=== PATIENT | female | born 1995 ===

== ENCOUNTER 2018-02-24 13:41 | Emergency (ER) | payer SELFPAY ==
[2018-02-24] MEDS ORDERED: DELTASONE PO ONE (16:23)
[2018-02-24] MEDS ORDERED: PROVENTIL IH ONE ×2 (16:23→17:11)
--- NOTE | 2018-02-24 16:29 | Emergency Department Report ---
ED Asthma HPI - General Chief Complaint: Adult Asthma Stated Complaint: TIGHT CHEST/SOB Time Seen by Provider: 02/24/18 16:06 Source: patient Mode of arrival: Ambulatory Limitations: No Limitations - History of Present Illness MD Complaint: "asthma attack", shortness of breath -: Gradual, days(s) (3) Asthma History: childhood onset, history of frequent attac, history of prior ED visit Severity: mild Context: other (cold weather) Associated Symptoms: dry cough - Related Data Current Asthma Therapy: none Previous Rx's Medication Instructions Recorded Last Taken Type ALBUTEROL Inhaler(NF) [VENTOLIN 2 puff IH Q4HR PRN #1 inha 02/24/18 Unknown Rx Inhaler(NF)] Azithromycin [Zithromax TAB] 500 mg PO QDAY #5 tablet 02/24/18 Unknown Rx predniSONE [Deltasone] 60 mg PO QDAY #5 tab 02/24/18 Unknown Rx Allergies Allergy/AdvReac Type Severity Reaction Status Date / Time cephalexin [From Keflex] Allergy Hives Verified 02/24/18 13:47 ED Review of Systems ROS: Stated complaint: TIGHT CHEST/SOB Other details as noted in HPI Comment: All other systems reviewed and negative Constitutional: denies: chills, fever Eyes: denies: eye pain, eye discharge, vision change ENT: denies: ear pain, throat pain Respiratory: cough, shortness of breath. denies: wheezing Cardiovascular: denies: chest pain, palpitations Endocrine: no symptoms reported Gastrointestinal: denies: abdominal pain, nausea, diarrhea Genitourinary: denies: urgency, dysuria, discharge Musculoskeletal: denies: back pain, joint swelling, arthralgia Skin: denies: rash, lesions Neurological: denies: headache, weakness, paresthesias Psychiatric: denies: anxiety, depression Hematological/Lymphatic: denies: easy bleeding, easy bruising ED Past Medical Hx - Past Medical History Previous Medical History?: Yes Hx Asthma: Yes - Surgical History Past Surgical History?: No - Social History Smoking Status: Current Some Day Smoker Substance Use Type: None - Medications Home Medications: Home Medications Medication Instructions Recorded Confirmed Last Taken Type ALBUTEROL Inhaler(NF) [VENTOLIN 2 puff IH Q4HR PRN #1 inha 02/24/18 Unknown Rx Inhaler(NF)] Azithromycin [Zithromax TAB] 500 mg PO QDAY #5 tablet 02/24/18 Unknown Rx predniSONE [Deltasone] 60 mg PO QDAY #5 tab 02/24/18 Unknown Rx ED Physical Exam - General Limitations: No Limitations General appearance: alert, in no apparent distress - Head Head exam: Present: atraumatic, normocephalic - Eye Eye exam: Present: normal appearance - ENT ENT exam: Present: mucous membranes moist - Neck Neck exam: Present: normal inspection - Respiratory Respiratory exam: Present: normal lung sounds bilaterally. Absent: respiratory distress - Cardiovascular Cardiovascular Exam: Present: regular rate, normal rhythm. Absent: systolic murmur, diastolic murmur, rubs, gallop - GI/Abdominal GI/Abdominal exam: Present: soft, normal bowel sounds - Extremities Exam Extremities exam: Present: normal inspection - Back Exam Back exam: Present: normal inspection - Neurological Exam Neurological exam: Present: alert, oriented X3 - Psychiatric Psychiatric exam: Present: normal affect, normal mood - Skin Skin exam: Present: warm, dry, intact, normal color. Absent: rash ED Course Vital Signs 02/24/18 02/24/18 02/24/18 13:47 16:30 16:45 Temperature 97.9 F Pulse Rate 75 Pulse Rate [ 82 89 Posterior] Respiratory 16 Rate Respiratory 18 24 Rate [Posterior ] Blood Pressure 134/83 O2 Sat by Pulse 100 Oximetry 02/24/18 17:01 Temperature Pulse Rate Pulse Rate [ Posterior] Respiratory 18 Rate Respiratory Rate [Posterior ] Blood Pressure O2 Sat by Pulse 98 Oximetry - Reevaluation(s) Reevaluation #1: 02/24/18 17:12 Patient said she fells much better after receiving treatment in the ED and she is ready to be discharged ED Medical Decision Making - Medical Decision Making Mild Asthma Exacerbation. Critical care attestation.: If time is entered above; I have spent that time in minutes in the direct care of this critically ill patient, excluding procedure time. ED Disposition Clinical Impression: Asthma exacerbation, mild, Bronchitis Disposition: - TO HOME OR SELFCARE Is pt being admited?: No Does the pt Need Aspirin: No Condition: Stable Instructions: Asthma (ED), Acute Bronchitis (ED) Additional Instructions: Please follow up your regular doctor or Dr Garza in 1-2 days. Return to the ED if your condition worsens. Prescriptions: ALBUTEROL Inhaler(NF) [VENTOLIN Inhaler(NF)] 2 puff IH Q4HR PRN #1 inha PRN Reason: Shortness Of Breath Azithromycin [Zithromax TAB] 500 mg PO QDAY #5 tablet predniSONE [Deltasone] 60 mg PO QDAY #5 tab Referrals: PRIMARY CARE, [Primary Care Provider] - 3-5 Days Time of Disposition: 16:28
[2018-02-24] MEDS ORDERED: ZITHROMAX PO ONE (16:31)
[2018-02-24 18:15] VITALS: BP 131/80
== END 2018-02-24 18:13 | disposition home or self-care (01) ==
LOC: ED 13:41
DX: J45.901 Unspecified asthma with (acute) exacerbation (principal); F17.200 Nicotine dependence, unspecified, uncomplicated
CPT/HCPCS: 94640; 99283; J7512

== ENCOUNTER 2018-09-09 09:23 | Emergency (ER) | payer OTHER ==
[2018-09-09 09:37] VITALS: BP 127/73
[2018-09-09] MEDS ORDERED: ULTRAM PO ONE (11:09)
[2018-09-09] MEDS ORDERED: IBUPROFEN PO ONE (11:09)
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
== END 2018-09-09 12:27 | disposition home or self-care (01) ==
LOC: ED 09:23
DX: S20.212A Contusion of left front wall of thorax, initial encounter (principal); S16.1XXA Strain of muscle, fascia and tendon at neck level, initial encounter; J45.909 Unspecified asthma, uncomplicated; Z79.899 Other long term (current) drug therapy; Z88.6 Allergy status to analgesic agent; V89.2XXA Person injured in unspecified motor-vehicle accident, traffic, initial encounter; Y93.89 Activity, other specified; Y92.410 Unspecified street and highway as the place of occurrence of the external cause; Y99.8 Other external cause status
CPT/HCPCS: 72040